=== PATIENT | male | born 1935 | race Caucasian/White ===

== ENCOUNTER 2023-01-31 14:05 | Emergency (ER) | payer BC, MEDICARE ==
[2023-01-31] MEDS ORDERED: Sodium Chloride 0.9% 10 ML Syringe FLUSH PRN (14:26)
[2023-01-31] MEDS ORDERED: Iopamidol 755 Mg/ML 100 ML Bottle IVPUSH ONE (14:43)
[2023-01-31] MEDS ORDERED: Sodium Chloride 0.9% 1,000 ML IV SCH (15:00)
[2023-01-31 15:43] LABS: ANION GAP 13.9 mmol/L (5-15); CHLORIDE,CL 108 mmol/L (98-107); ESTIMATED GFR 71 mL/min (>=60); SODIUM,NA 144 mmol/L (138-146)
[2023-01-31 17:46] VITALS: BP 147/87; PULSE 89
== END 2023-01-31 17:43 | disposition home or self-care (01) ==
LOC: VM.ED 14:05
DX: L03.116 Cellulitis of left lower limb (principal); I73.9 Peripheral vascular disease, unspecified; I10 Essential (primary) hypertension; E03.9 Hypothyroidism, unspecified; Z79.899 Other long term (current) drug therapy; Z88.8 Allergy status to other drugs, medicaments and biological substances; Z88.5 Allergy status to narcotic agent
CPT/HCPCS: 36415; 75635; 80053; 85025; 86140; 99284; J7030; Q9967